=== PATIENT | female | born 1995 | race Caucasian/White ===

== ENCOUNTER 2017-01-27 16:44 | Inpatient (IN) ==
--- OUTSIDE RECORDS SUMMARY | 2017-01-27 16:54 | External Medical Summary | Continuity of Care Document ---
:1995 Author Organization [facility] Address [address] [place], [place] [id number] Phone Support Name Relationship Address Phone Zoltan Pulliam parent [id number] [phone] [place] [address] Allergies, Adverse Reactions, Alerts Substance Reaction Severity Status No Known Drug Allergies Unknown Active Medications Medication Instructions Dosage Effective Dates Status Comments (start - stop) + DHA - Active (unknown strength) 28 mg-800 - Active mcg tablet Aspir-81 81 mg take 1 tablet by oral 81 MG - Active tablet,delayed route every day release Problems Condition Effective Dates (start - stop) Clinical Status Morbid (severe) obesity due to excess calories 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) (routine) w/o abn findings Body mass index (BMI) 36.0-36.9, adult Unsp pre-existing htn comp , - second trimester Unsp pre-existing htn comp , - unsp trimester 19 weeks gestation of - Encntr for suprvsn of normal first - preg, second trimester Morbid (severe) obesity due to excess - calories Partial placenta previa NOS or w/out - hemorrhage, unspec trimester Obesity complicating , first - trimester 12 weeks gestation of - Encntr for suprvsn of normal first - preg, first trimester Morbid (severe) obesity due to excess calories Other fatigue 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) - (routine) w abnormal findings Pap Smear Screening, Cervix Pap Smear Screening, Cervix Body mass index (BMI) 37.0-37.9, adult Encounter for surveillance of contraceptive pills Unsp pre-existing htn comp , - second trimester Obesity complicating , second - trimester 19 weeks gestation of - Unsp pre-existing htn comp , - unsp trimester Partial placenta previa NOS or w/out - hemorrhage, second trimester Obesity complicating , second - trimester 16 weeks gestation of - Obesity complicating , first - trimester Encntr for suprvsn of normal first - preg, first trimester 8 weeks gestation of - Obesity complicating , first - trimester Encntr for suprvsn of normal first - preg, first trimester 12 weeks gestation of - Initiation of Oral Contraceptives - Active Irregular Bleeding Active Procedures Procedure Date Unknown Results Test Name Date and Time Measure Units Reference Range Abnormal Flag Comments Unknown Advance Directives Directive Yes / No Effective Date File Name Unknown Encounters Encounter Practice Location Reason(s) Diagnoses Date Provider Care Description For Visit Team Members Kimberly Calderón Aug-0 Ariela In Wom[facility] 3-201 Vani. [facility], 7 [address], [place], [place], [place] [id number], , [facility] [place] 120, tel:+ Stephane [address] [place] [address], [id number] , [place]. tel: [phone] [facility] pre-existing Aug-0 Ariela In Wom[facility] htn comp 2-201 [facility], , second 7 700 [address], [place], pre[place]existing htn Center [id number], comp , [facility] unsp [email or web address] 120, tel:+21 weeks gestation [place] [address] [place] [address], pregnancyEncntr [id number] for suprvsn of , [place]. normal first tel: preg, second [id number] trimester Associates [facility] Lr pre-existing Aug-0 Ariela In [facility] Ultrasound htn comp 2-201 [facility], , second 7 700 [address], trimesterObesity [place], complicating Center [id number], , second Nabor Duran [place] [id number] weeks 120, tel: gestation of [place], [address] [place], [id number] , [place]. tel: [phone] [facility] Unsp pre-existing Reagan-1 Ariela In Womens htn comp 0-201 [facility], , unsp 7 [address], [place], [place], placenta previa Center [id number], NOS or w/out , Nabor [place] hemorrhage, 120, tel:+ second [place], [address] trimesterObesity [place], complicating [id number] , second , [place]. [email or web address] weeks tel: gestation of [id number] [facility] Morbid (severe) Deven-1 Sobbing In Womens obesity due to 2-201 Wilfrido. [facility], excess 7 700 [address], [place], [place], placenta previa Center , NOS or w/out Drive, [place] hemorrhage, Suite tel: unspec 120, [address] trimesterObesity [place], complicating [place], , first [address], [email or web address] weeks [place]. gestation of tel: pregnancyEncntr [id number] for suprvsn of normal first preg, first trimester [facility] Obesity Deven-1 Ariela In Womens Ultrasound complicating 2-201 [facility], , first 7 [address], [place], [place], for suprvsn of Center [id number], normal first Nabor Duran [place] preg, first 120, tel: [email or web address] weeks [place], [address] gestation of [place], [id number] , [place]. tel: [phone] [facility] Obesity May-1 Ariela In Womens complicating 5-201 [facility], , first 7 [address], [place], for suprvsn of Center [id number], normal first Nabor Duran [place] preg, first 120, tel: trimester8 weeks [place], [address] gestation of [place], [id number] , [place]. tel: [phone] Kimberly Calderón Morbid (severe) Mar-2 Hossein In Womens obesity due to 7-201 Ladonna. [facility], excess 7 700 [address], [place], for bond underwriter exam Center [id number], (general) Nabor Duran (routine) w/o abn 120, tel:+21 findingsBody mass [place], [address] index (BMI) [place], 36.0-36.9, adult [id number] , [place]. tel: [phone] Kimberly Stephane Morbid (severe) Mar-1 Hossein In Womens obesity due to 4-201 [facility]onna. [facility], excess 6 700 [address], [place], [facility] [id number], bond underwriter exam Nabor Duran (general) 120, tel:+21 (routine) w Stephane, [address] abnormal [place], findingsPap Smear [id number] Screening, , [place]. CervixPap Smear tel: Screening, [phone] CervixBody mass index (BMI) 37.0-37.9, adultEncounter for surveillance of contraceptive pills Kimberly Stephane Dec-0 Hossein In Womens 3-201 [facility], 4 700 [address], [place], [place], [place] [id number], Nabor Duran 120, tel:+21 Stephane, [address] [place], [id number] , [place]. tel: [phone] Family History Family Member Diagnosis Age At Onset No family history of Pulmonary Embolism Maternal Grandfather Diabetes mellitus Maternal Grandmother Cardiovascular Disease No family history of Venous Thrombosis Immunizations Vaccine Date Status Comments Unknown Payers Payer name Insurance type Covered constitution party ID Authorization(s) R CI [id number] Social History Type Description Quantity Date Captured Unknown Vital Signs Date / Height Weight BMI Pulse Blood Temperature Respiratory Body Head BMI Time: Rate Pressure Rate Surface Circumference percentile Area Unknown Chief Complaint And Reason For Visit Unknown Chief Complaint And Reason For Visit Reason For Referral Reason For Referral Unknown Plan Of Care Date Type Action Status Goal Lifestyle education regarding completed diet Goal Lifestyle education regarding completed diet Appointment Alta Lechuga BOOKED Future Order: Lab Order Pap Smear With HPV Reflex If Ordered ASCUS ([id number]) Future Order: Radiology Order Complete OB Ultrasound > 14 Ordered Weeks ([id number]) Future Order: Radiology Order Nuchal Translucency ([id number]) Ordered Date Type Problem Goal Intervention Status Start Date Unknown. History Of Present Illness Encounter Date Complaint History Of Present Illness This patient has no known history of present illness Functional Status Encounter Date Functional Assessment Cognitive Assessment Unknown Medications Administered Medication Instructions Dosage Effective Dates (start - stop) Status Comments Drug Treatment Unknown Instructions Date Instruction Additional Information indications for ultrasound influenza vaccine environmental / work hazards travel tobacco (ask, advise, assess, assist and arrange) alcohol illicit / recreational drugs HIV and other routine tests risk factors identified by history anticipated course of care nutrition and weight gain counseling, special diet toxoplasmosis precautions (cats / raw meat) sexual activity exercise use of any medications (including supplements, vitamins, herbs, OTC drugs) smoking counseling domestic violence seat belt use childbirth classes / hospital facilities hospital registration genetic testing new ob handbook Zika virus assessment & precautions Giving encouragement to exercise Related to Body mass index 36.0-36.9 Lifestyle education regarding diet Related to Body mass index 36.0-36.9 Giving encouragement to exercise Related to Body mass index 37.0-37.9 Lifestyle education regarding diet Related to Body mass index 37.0-37.9
--- OUTSIDE RECORDS SUMMARY | 2017-01-27 16:54 | External Medical Summary | Continuity of Care Document ---
:1995 Author Organization [facility] Address [address] [place], [place] [id number] Phone Support Name Relationship Address Phone Zoltan Pulliam parent [address] [phone] [place] [address] Allergies, Adverse Reactions, Alerts Substance Reaction Severity Status No Known Drug Allergies Unknown Active Medications Medication Instructions Dosage Effective Dates Status Comments (start - stop) + DHA - Active (unknown strength) Aspir-81 81 mg take 1 tablet by oral 81 MG - Active tablet,delayed route every day release Pepcid 20 mg tablet take 1 tablet by oral 20 MG - Active route every day Problems Condition Effective Dates (start - stop) Clinical Status Supervision of other high risk - pregnancies, third trimester Partial Placenta Previa Nos Or W/out - Hemorrhage, Third Trimester Obesity complicating , third - trimester 30 weeks gestation of - Unsp pre-existing htn comp , - second trimester Unsp pre-existing htn comp , - unsp trimester Encntr for suprvsn of normal first - preg, second trimester 19 weeks gestation of - Supervision of other high risk - pregnancies, third trimester Unsp pre-existing htn comp , - third trimester Obesity complicating , third - trimester 28 weeks gestation of - Morbid (severe) obesity due to excess calories 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) w/o 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 findings Body mass index (BMI) 36.0-36.9, adult Morbid (severe) obesity due to excess - calories Partial placenta previa NOS or w/out - hemorrhage, unspec trimester Obesity complicating , first - trimester Encntr for suprvsn of normal first - preg, first trimester 12 weeks gestation of - Morbid (severe) obesity due to excess calories Other fatigue 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) - (routine) w abnormal findings Pap Smear Screening, Cervix Pap Smear Screening, Cervix Encounter for surveillance of contraceptive pills Body mass index (BMI) 37.0-37.9, adult Supervision of other high risk - pregnancies, second trimester Unsp pre-existing htn comp , - second trimester Obesity complicating , second - trimester 23 weeks gestation of - Supervision of other high risk - pregnancies, third trimester Unsp pre-existing htn comp , - third trimester Obesity complicating , third - trimester 30 weeks gestation of - Supervision of other high risk - pregnancies, third trimester Unsp pre-existing htn comp , - third trimester Obesity complicating , third - trimester 32 weeks gestation of - Unsp pre-existing htn comp , - second trimester Obesity complicating , second - trimester Encntr for suprvsn of normal first - preg, second trimester 26 weeks gestation of - Unsp pre-existing htn comp , - second [...] Active Irregular Bleeding Active Procedures Procedure Date OB Visit No Charge Results Test Name Date and Time Measure Units Reference Range Abnormal Flag Comments Unknown Advance Directives Directive Yes / No Effective Date File Name Unknown Encounters Encounter Practice Location Reason(s) Diagnoses Date Provider Care Team Description For Visit Members Kimberly Calderón Supervision of Nov-0 Ariela In Wom[facility] other high risk 1-201 [facility], pregnancies, 7 700 [address], [facility], pre-existing htn Nabor Duran, comp , 120, , third [facility] trimesterObesity [place], tel:[phone] complicating [id number] , third , [place]. [email or web address] weeks tel:+-31 gestation of [id number] Associates [facility] Supervision of Oct-1 Ariela In Womens other high risk 8-201 [facility], pregnancies, 7 700 [address], [facility], Placenta Previa Nabor Duran, Nos Or W/out 120, , Hemorrhage, Third [facility] TrimesterObesity [place], tel:[phone] complicating [id number] , third , [place]. weeks tel:+1-31 gestation of [id number] Associates Ste[facility]ane Supervision of Oct-1 Ariela In Womens Ultrasound other high risk 8-201 [facility], pregnancies, 7 700 [address], [facility], pre-existing htn Nabor Duran, comp , 120, , third [facility] trimesterObesity [place], tel:[phone] complicating [id number] , third , [place]. [email or web address] weeks tel:+1-31 gestation of [id number] Associates [facility] Supervision of Oct-0 Ariela Referring In Womens other high risk 4-201 Vani. Provider: Health [facility], pregnancies, 7 700 Vani [address] Medical Ariela L, 1522, trimesterUnsp Center [address] [place], pre-existing htn Nabor Duran, comp , 120, [address] Dr , third Nabor Calderón 120, [place] trimesterObesity [facility], Stephane, tel:[phone] complicating [id number] [place], , third , [place]. [id number]. [email or web address] weeks tel:+1-31 tel:+1-316 gestation of [id number] [facility] pre-existing Sep-2 Ariela In Womens htn comp 0-201 [facility], , second 7 700 PO Box trimesterObesity Medical 1522, complicating Center [place], , second Nabor Duran, trimesterEncntr 120, , for suprvsn of Calder[place], normal first [place], tel:[phone] preg, second [id number] weeks , [place]. gestation of tel:[phone] Associates Stephane Supervision of 3 Ariela In Womens other high risk 0-201 [facility], pregnancies, 7 700 [address] second [address], trimesterUnsp Center [place], pre-existing htn Nabor Duran, comp , 120, , second [place], [place] trimesterObesity [place], tel:[phone] complicating [id number] , second , [place]. [email or web address] weeks tel:+1-31 gestation of [phone] [facility] L[facility] pre-existing Aug-0 Ariela In Womens htn comp 2-201 [facility], , second 7 700 PO Box trimesterUnsp Medical 1522, pre-existing htn Center [place], comp , Nabor Duran, unsp 120, , trimesterEncntr [place], for suprvsn of [place], tel:[phone] normal first [id number] preg, second , [place]. [email or web address] weeks tel:+1-31 gestation of [id number] [facility] Lr pre-existing Aug-0 Ariela In Womens Ultrasound htn comp 2-201 [facility], , second 7 700 PO Box trimesterObesity Medical 1522, complicating Center [place], , second Nabor Duran, [email or web address] weeks 120, [id number], gestation of [place], [place], tel: , [place]. tel: [phone] Associates Stephane Unsp pre-existing Reagan-1 Ariela In Womens htn comp 0-201 [facility], , unsp 7 700 PO Box trimesterPartial Medical 1522, placenta previa Center [place], NOS or w/out Nabor Duran, hemorrhage, 120, [id number], second [facility] trimesterObesity [place], tel: complicating , second , [place]. [email or web address] weeks tel: gestation of Associates Ste[facility] Morbid (severe) Deven-1 Sobbing In Womens obesity due to 2-201 Wilfrido. [facility], excess 7 700 PO Box caloriesPartial Medical 1522, placenta previa Center [place], NOS or w/out Drive, [place], hemorrhage, [address] [id number], unspec 120, [place] trimesterObesity [place], tel: complicating [place], , first [address], trimesterEncntr [place]. for suprvsn of tel: normal first [id number] preg, first [id number] weeks gestation of Associates Ste[facility] Obesity Deven-1 Ariela In Womens Ultrasound complicating 2-201 [facility], , first 7 700 PO Box trimesterEncntr Medical 1522, for suprvsn of [facility], normal first Nabro Duran, preg, first 120, [id number], [email or web address] weeks [place], gestation of [place], tel: , [place]. tel: [phone] [facility] Obesity May-1 Ariela In Womens complicating 5-201 [facility], , first 7 700 PO Box trimesterEncntr Medical 1522, for suprvsn of [facility], normal first Nabor Duran, preg, first 120, [id number], trimester8 weeks [place], gestation of [place], tel: , [place]. tel: [phone] Kimberly Calderón Morbid (severe) Mar-2 Hossein In Womens obesity due to 7-201 [facility]. 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 tel: [phone] Kimberly Calderón Morbid (severe) Mar-1 Hossein In Womens obesity due to 4-201 [facility]. [facility], excess 6 700 PO Box caloriesOther Medical 1522, fatigueEncntr for [facility], hand expansion envelope maker exam Nabor Duran, (general) 120, , (routine) w [place], [place] abnormal [place], tel: findingsPap Smear [id number] [id number] Screening, , [place]. CervixPap Smear tel: Screening, [phone] CervixEncounter for surveillance of contraceptive pillsBody mass index (BMI) 37.0-37.9, adult Associates Stephane Dec-0 Hossein In Womens 3-201 [facility]. [facility], 4 700 [address], [place], Nabor Duran, 120, , [place], [place], tel: [phone] [phone] , [place]. tel: [phone] Family History Family Member Diagnosis Age At Onset No family history of Pulmonary Embolism Maternal Grandfather Diabetes mellitus Maternal Grandmother Cardiovascular Disease No family history of Venous Thrombosis Immunizations Vaccine Date Status Comments Influenza, injectable, completed Source: New Immunization Record quadrivalent, preservative free, 3 yrs or older Payers Payer name Insurance type Covered green party ID Authorization(s) R CI [id number] R CI [id number] Social History Type Description Quantity Date Captured Alcohol Use Details No Caffeine Use Details Unknown Tobacco Use Status Unknown Smoking Status Never smoker Vital Signs Date / Height Weight BMI Pulse Blood Temperature Respiratory Body Head BMI Time: Rate Pressure Rate Surface Circumference percentile Area 271.80 41.3 136/86 2017 lbs 2 mm[Hg] 9:06 kg/m AM eter (2) Chief Complaint And Reason For Visit Unknown Chief Complaint And Reason For Visit Reason For Referral Reason For Referral Unknown Plan Of Care Date Type Action Status Goal Lifestyle education regarding completed diet Goal Lifestyle education regarding completed diet Appointment Alta Lechuga BOOKED Appointment Alta Lechuga BOOKED Appointment Atla Lechuga BOOKED Appointment Alta Lechuga BOOKED Appointment Alta Lechuga BOOKED Future Order: Lab Order Pap Smear With HPV Reflex If Ordered ASCUS ([id number]) Future Order: Radiology Order Ultrasound OB Follow-up ([id number]) Ordered Future Order: Radiology Order Complete OB Ultrasound > 14 Ordered Weeks ([id number]) Future Order: Radiology Order Nuchal Translucency ([id number]) Ordered Date Type Problem Goal Intervention Status [...]
--- OUTSIDE RECORDS SUMMARY | 2017-01-27 16:54 | External Medical Summary | Continuity of Care Document ---
:1995 Author Organization [facility] [employer] [facility] Address [address] [place], [place] [id number] Phone Support Name Relationship Address Phone Zoltan Pulliam parent [address] [phone] [place] [address] Allergies, Adverse Reactions, Alerts Substance Reaction Severity Status No Known Drug Allergies Unknown Active Medications Medication Instructions Dosage Effective Dates Status Comments (start - stop) + DHA - Active (unknown strength) 28 mg-800 - Active mcg tablet Aspir-81 81 mg take 1 tablet by oral 81 MG - Active tablet,delayed route every day release Tylenol 325 mg tablet take 3 tablet by ORAL 975 MG - Active route every 4 days as needed Aspercreme - Active (lidocaine) 4 % topical Problems Condition Effective Dates (start - stop) Clinical Status Morbid (severe) obesity due to excess calories 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) w/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 findings Body mass index (BMI) 36.0-36.9, adult Unsp pre-existing htn comp , - second trimester Unsp pre-existing htn comp , - unsp trimester 19 weeks gestation of - Encntr for suprvsn of normal first - preg, second trimester Supervision of other high risk - pregnancies, second trimester Unsp pre-existing htn comp , - second trimester 23 weeks gestation of - Obesity complicating , second - trimester Morbid (severe) obesity due to excess - calories Partial placenta previa NOS or w/out - hemorrhage, unspec trimester Obesity complicating , first - trimester 12 weeks gestation of - Encntr for suprvsn of normal first - preg, first trimester Morbid (severe) obesity due to excess calories Other fatigue 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) - (routine) w abnormal findings Pap Smear Screening, Cervix Pap Smear Screening, Cervix Encounter for surveillance of contraceptive pills Body mass index (BMI) 37.0-37.9, adult Obesity complicating , first - trimester Encntr for suprvsn of normal first - preg, first trimester 8 weeks gestation of - Obesity complicating , first - trimester Encntr for suprvsn of normal first - preg, first trimester 12 weeks gestation of - Partial placenta previa NOS or w/out - hemorrhage, second trimester Unsp pre-existing htn comp , - unsp trimester Obesity complicating , second - trimester 16 weeks gestation of - Unsp pre-existing htn comp , - second trimester Obesity complicating , second - trimester 19 weeks gestation of - Initiation of Oral Contraceptives - Active Irregular Bleeding Active Procedures Procedure Date Unknown Results Test Name Date and Time Measure Units Reference Range Abnormal Flag Comments Unknown Advance Directives Directive Yes / No Effective Date File Name Unknown Encounters Encounter Practice Location Reason(s) Diagnoses Date Provider Care Description For Visit Team Members Kimberly Calderón Supervision of [facility] other high risk 0-201 [facility], pregnancies, 7 [address], [place], [place], trimesterUns Center [id number], pre-existing htn Nabor Duran comp , 120, tel:+21 second Calderón, [address] weeks [place], gestation [place] [id number] pregnancyObesity , [place]. complicating tel:+[phone] , second [id number] trimester Kimberly Calderón [facility] 4-201 [facility], 7 [address], [place], [place], Center [id number], Nabor Duran 120, tel: Stephane, [address] [place], [id number] , [place]. tel: [phone] [facility] Unsp pre-existing Aug-0 [facility] htn comp 2-201 [facility], , second 7 700 [address], [place], pre-existing htn Center , comp , Nabor Duran unsp [email or web address] 120, tel: weeks gestation Calderón, [address] of [place], pregnancyEncntr [id number] for suprvsn of , [place]. normal first tel: preg, second [id number] trimester [facility] Unssakina pre-existing Aug-0 [facility] Ultrasound htn comp 2-201 [facility], , second 7 700 [address], [place], complicating Center [id number], , second Nabor Duran [email or web address] weeks 120, tel: gestation of [facility] [address] [place], [id number] , [place]. tel: [phone] [facility] Partial placenta Reagan-1 [facility] previa NOS or 0-201 [facility], w/out hemorrhage, 7 [address], [place], [place], trimesterUnsp Center [id number], pre-existing htn Nabor Duran comp , 120, tel: unsp [place] [address] [facility], complicating [id number] , second , [place]. [email or web address] weeks tel: gestation of [id number] [facility] Morbid (severe) Deven-1 Sobbing In [facility] obesity due to 2-201 [facility], excess 7 700 [address], [place], placenta previa Center , NOS or w/out Drive, [place] hemorrhage, Suite tel: unspec 120, [address] trimesterObesity Calderón, complicating [place], , first [address], [email or web address] weeks [place]. gestation of tel: pregnancyEncntr [id number] for suprvsn of normal first preg, first trimester [facility] Obesity Deven-1 [facility] Ultrasound complicating 2-201 [facility], , first 7 [address], [place], for suprvsn of Center [id number], normal first Nabor Duran preg, first 120, tel:+21 [email or web address] weeks Calderón, [address] gestation of [place], [id number] , [place]. tel: [phone] [facility] Obesity May-1 [facility] complicating 5-201 [facility], , first 7 [address], [place], [place], for suprvsn of [place] [id number], normal first Nabor Duran preg, first 120, tel:+21 trimester8 weeks Calderón, [address] gestation of [place], [id number] , [place]. tel: [phone] [facility] Morbid (severe) Mar-2 [facility] obesity due to 7-201 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 tel: [phone] [facility] Morbid (severe) Mar-1 [facility]sein [facility] obesity due to 4-201 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 CervixPap Smear tel: Screening, [phone] CervixEncounter for surveillance of contraceptive pillsBody mass index (BMI) 37.0-37.9, adult [facility] Dec-0 [facility] 3-201 [facility], 4 700 [address], [facility] [place], Center [id number], Nabor Duran [place] 120, tel:[phone] Stephane, [address] [place], [id number] , . tel: [phone] Family History Family Member Diagnosis Age At Onset No family history of Pulmonary Embolism Maternal Grandfather Diabetes mellitus Maternal Grandmother Cardiovascular Disease No family history of Venous Thrombosis Immunizations Vaccine Date Status Comments Unknown Payers Payer name Insurance type Covered republican ID Authorization(s) [facility] CI [id number] Social History Type Description Quantity Date Captured [...] Ordered ASCUS (WPMPap1) Future Order: Radiology Order Nuchal Translucency ([id number]) Ordered Future Order: Radiology Order Complete OB Ultrasound > 14 Ordered Weeks ([id number]) Date Type Problem Goal Intervention Status Start [...]
--- OUTSIDE RECORDS SUMMARY | 2017-01-27 16:55 | External Medical Summary | Continuity of Care Document ---
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 complicating tel:+31 , second [id number] trimester Kimberly Calderón [facility] 5-201 [facility], 7 [address], [place], [place], Center [id number], Nabor Duran 120, tel: Stephane, [address] [place], [id number] , [place]. tel: [phone] [facility] Unsp pre-existing Aug-0 [facility] htn comp 2-201 [facility], , second 7 [address], [place], pre-existing htn Center , comp , Nabor Duran unsp [email or web address] 120, tel: weeks gestation Calderón, [address] of [place], pregnancyEncntr [id number] for suprvsn of , [place]. normal first tel: preg, second [id number] trimester [facility] Unssakina pre-existing Aug-0 [facility] Ultrasound htn comp 2-201 [facility], , second 7 700 [address], [place], complicating Center [id number], , second Nabor Duran [email or web address] weeks 120, tel: gestation of [facility] [address] [place], [id number] , [place]. tel: [phone] [facility] Partial placenta Reagan-1 [facility] previa NOS or 0-201 [facility], w/out hemorrhage, 7 [address], [place], [place], trimesterUnsp Center [id number], pre-existing htn Nabor Duran comp , 120, tel: unsp [place] [address] [facility], complicating [id number] , second , [place]. [email or web address] weeks tel: gestation of [phone] [facility] Morbid (severe) Deven-1 Sob[place] In [facility]omens obesity due to 2-201 [facility], excess 7 700 [address], [place], placenta previa Center , NOS or w/out Drive, [place] hemorrhage, Suite tel: unspec 120, [address] trimesterObesity Calderón, complicating [place], , first [address], [email or web address] weeks [place]. gestation of tel: pregnancyEncntr [id number] for suprvsn of normal first preg, first trimester [facility] Obesity Deven-1 [facility] Ultrasound complicating 2-201 [facility], , first 7 [address], [place], [place], for suprvsn of Center [id number], normal first Nabor Duran preg, first 120, tel:+21 [id number] weeks Calderón, [address] gestation of [place], [id number] , [place]. tel: [phone] [facility] Obesity May-1 [facility] complicating 5-201 [facility], , first 7 [address], [place], [place], for suprvsn of [place] [id number], normal first Nabor Duran preg, first 120, tel:+21 trimester8 weeks Calderón, [address] gestation of [place], [id number] , [place]. tel: [phone] [facility] Morbid (severe) Mar-2 Hossein In Womens obesity due to 7-201 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 tel: [phone] [facility] Morbid (severe) Mar-1 Hossein In Womens obesity due to 4-201 [facility], excess 6 700 [address], [place], [place], [facility] , harvest contractor exam Nabor Duran (general) 120, tel:+21 (routine) w Calderón, [address] abnormal [place], findingsPap Smear [id number] Screening, , [place]. CervixPap Smear tel: Screening, [phone] CervixEncounter for surveillance of contraceptive pillsBody mass index (BMI) 37.0-37.9, adult [facility] Dec-0 Hossein In Womens 3-201 [facility], 4 700 [address], [facility] [place], Center [id number], Nabor Duran [place] 120, tel:[phone] Stephane, [address] [place], [id number] , . tel: [phone] Family History Family Member Diagnosis Age At Onset No family history of Pulmonary Embolism Maternal Grandfather Diabetes mellitus Maternal Grandmother Cardiovascular Disease No family history of Venous Thrombosis Immunizations Vaccine Date Status Comments Unknown Payers Payer name Insurance type Covered green party ID Authorization(s) [facility] CI [id number] Social History Type Description Quantity Date Captured [...] (WPMPap1) Future Order: Radiology Order Nuchal Translucency ([id number]) Ordered Future Order: Radiology Order Complete OB Ultrasound > 14 Ordered Weeks ([id number]) Date Type Problem Goal Intervention Status Start [...]
--- OUTSIDE RECORDS SUMMARY | 2017-01-27 16:55 | External Medical Summary | Continuity of Care Document ---
:1995 Author Organization [facility] Address [address] [place], [place] [id number] Phone Support Name Relationship Address Phone Zoltan Pulliam parent [phone] [phone] [place] [address] Allergies, Adverse Reactions, Alerts Substance Reaction Severity [...] 20 MG - Active route every day omeprazole 20 mg take 1 capsule by oral - Active capsule,delayed route every day release before a meal Problems Condition Effective Dates (start - stop) Clinical Status Unsp pre-existing htn comp , - second trimester Unsp pre-existing htn comp , - unsp trimester Encntr for suprvsn of normal first - preg, second trimester 19 weeks gestation of - Supervision of other high risk - pregnancies, third trimester Unsp pre-existing htn comp , - third trimester Obesity complicating , third - trimester 28 weeks gestation of - Supervision of other high risk - pregnancies, third trimester Unsp pre-existing htn comp , - third trimester Polyhydramnios, third trimester, not - applicable or unsp 35 weeks gestation of - Morbid (severe) obesity due to excess - calories Supervision of other high risk - pregnancies, third trimester Pre-existing hypertension w - pre-eclampsia, third trimester Polyhydramnios, third trimester, not - applicable or unsp Morbid (severe) obesity due to excess calories 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 Body mass index (BMI) 36.0-36.9, adult Morbid (severe) obesity due to excess - calories Partial placenta previa NOS or w/out - hemorrhage, unspec trimester Obesity complicating , first - trimester Encntr for suprvsn of normal first - preg, first trimester 12 weeks gestation of - Morbid (severe) obesity due to excess calories Other fatigue 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) - (routine) w abnormal findings [...] other high risk - pregnancies, third trimester Polyhydramnios, third trimester, not - applicable or unsp Obesity complicating , third - trimester 34 weeks gestation of - Supervision of other high risk - pregnancies, third trimester Unsp pre-existing htn comp , - third trimester Obesity complicating , third - trimester 32 weeks gestation of - Supervision of other [...] - Unsp pre-existing htn comp , - third trimester Polyhydramnios, third trimester, not - applicable or unsp Obesity complicating , third - trimester 35 weeks gestation of - Unsp pre-existing htn comp , - third trimester Polyhydramnios, third trimester, not - applicable or unsp Obesity complicating , third - trimester 36 weeks gestation of - Unsp pre-existing htn comp , - third trimester Polyhydramnios, third trimester, not - applicable or unsp Obesity complicating , third - trimester 34 weeks gestation of - Unsp pre-existing htn [...] Team Description For Visit Members Kimberly [place] Morbid (severe) Nov-2 [facility] obesity due to 9-201 [facility], excess 7 700 [address] caloriesSupervisi Medical 1522, on of other high [facility] [place], risk pregnancies, Nabor Duran, third 120, [id number], trimesterPre-exis [place], [place] ting hypertension [place], tel:[phone] w pre-eclampsia, [id number] third , [place]. trimesterPolyhydr tel:+03-27 amnios, third [id number] trimester, not applicable or unsp [facility] pre-existing Nov-2 [facility] Ultrasound htn comp 9-201 [facility], , third 7 700 PO Box trimesterPolyhydr Medical 1522, amnios, third [facility] [place], trimester, not Nabor Duran, applicable or 120, [id number], unspObesity [place], [place] complicating [place], tel:[phone] , third [phone] [email or web address] weeks , [place]. gestation of tel:+03-27 [phone] Kimberly [place]ón Supervision of Nov-2 [facility] other high risk 0-201 [facility], pregnancies, 7 700 [address] third Medical 1522, trimesterUnsp [facility] [place], pre-existing htn Nabor Duran, comp , 120, [id number], third [place], [place] trimesterPolyhydr [place], tel:[phone] amnios, third [phone] [id number] trimester, not , [place]. applicable or tel:+03-27 unsp35 weeks [id number] gestation of [facility]p pre-existing Nov-2 [facility] Ultrasound htn comp 0-201 [facility], , third 7 700 PO Box trimesterPolyhydr Medical 1522, amnios, third [facility], trimester, not Nabor uDran, applicable or 120, [id number], unspObesity [place], [place] complicating [place], tel:[phone] , third [phone] [email or web address] weeks , [place]. gestation of tel:+03-27 [phone] Kimberly [place]ón Supervision of Nov-1 [facility] other high risk 5-201 [facility], pregnancies, 7 700 [address] third Medical 1522, trimesterPolyhydr [facility] [place], amnios, third Nabor Duran, trimester, not 120, [id number], applicable or [place], [place] unspObesity [place], tel:[phone] complicating [id number] , third , [place]. [email or web address] weeks tel: gestation of [phone] [facility] Unsp pre-existing Nov-1 [facility] Ultrasound htn comp 5-201 [facility], , third 7 700 PO Box trimesterPolyhydr Medical 1522, amnios, third [facility] [place], trimester, not Nabor Duran, applicable or 120, , unspObesity [place], [place] complicating [place], tel:+ , third [phone] [id number] [email or web address] weeks , [place]. gestation of tel: [phone] [facility] Nov-0 [facility] 9-201 [facility], 7 700 [address] Medical 1522, [facility], Nabor Duran, 120, [id number], [place], [place], tel:+ [phone] , [place]. tel: [phone] [facility] Supervision of Nov-0 [facility] other high risk 1-201 [facility], pregnancies, 7 700 [address] Box third Medical 1522, trimesterUnsp [facility], pre-existing htn Nabor Duran, comp , 120, , third [place], [place] trimesterObesity [place], tel:[phone] complicating [id number] , third , [place]. [email or web address] weeks tel:+03-27 gestation of [phone] [facility] Supervision of Oct-1 [facility] other high risk 8-201 [facility], pregnancies, 7 700 [address] Box third Medical 1522, trimesterPartial [facility] [place], Placenta Previa Nabor Duran, Nos Or W/out 120, [id number], Hemorrhage, Third [place], [place] TrimesterObesity [place], tel:[phone] complicating [phone] [id number] , third , [place]. [email or web address] weeks tel:+1-31 gestation of [id number] [facility] Supervision of Oct-1 [facility] Ultrasound other high risk 8-201 [facility], pregnancies, 7 700 PO Box third Medical 1522, trimesterUnsp [facility] [place], pre-existing htn Nabor Duran, comp , 120, [id number], third [place], trimesterObesity [place], tel:[phone] complicating [phone] [id number] , third , [place]. [email or web address] weeks tel:+1-31 gestation of [phone] [facility] Supervision of Oct-0 Ariela Referring In Womens other high risk 4-201 [facility]. Provider: [facility], pregnancies, 7 700 Vani [address] Box third Medical Ariela L, 1522, trimesterUnsp Center [address] [place], pre-existing htn Nabor Duran, comp , 120, [address] , third Stephane [place] [id number], [place] trimesterObesity Stephane NIELSEN, tel:[phone] complicating [id number] [place], , third , [place]. [id number]. weeks tel:+131 tel:+1-316 gestation of [phone] [facility] Uns pre-existing Sep-2 [facility] htn comp 0-201 [facility], , second 7 700 PO Box trimesterObesity Medical 1522, complicating [facility] [place], , second Nabor Duran, trimesterEncntr 120, [id number], for suprvsn of [place], normal first [place], tel:[phone] preg, second [id number] [email or web address] weeks , [place]. gestation of tel:[phone] [phone] [facility] Supervision of Aug-3 [facility] other high risk 0-201 [facility], pregnancies, 7 700 PO Box second Medical 1522, trimesterUnsp [facility] [place], pre-existing htn Nabor Duran, comp , 120, [id number], second [place], trimesterObesity [place], tel:[phone] complicating [id number] , second , [place]. [email or web address] weeks tel:+1-31 gestation of [id number] [facility] Unsp pre-existing Aug-0 [facility] htn comp 2-201 [facility], , second 7 700 PO Box trimesterUnsp Medical 1522, pre-existing htn [facility] [place], comp , Nabor Duran, unsp 120, [id number], trimesterEncntr [place], for suprvsn of [place], tel:[phone] normal first [id number] preg, second , [place]. [email or web address] weeks tel:+03-27 gestation of [id number] [facility] Unsp pre-existing Aug-0 [facility] Ultrasound htn comp 2-201 [facility], , second 7 700 PO Box trimesterObesity Medical 1522, complicating [facility] [place], , second DrNabor, [email or web address] weeks 120, [id number], gestation of [place], [place], tel:[phone] , [place]. tel:[phone] [facility] Unsp pre-existing Reagan-1 Ariela In [facility] htn comp 0-201 [facility], , unsp 7 700 PO Box trimesterPartial Medical 1522, placenta previa [facility] [place], NOS or w/out Nabor Duran, hemorrhage, 120, , second [place], [place] trimesterObesity [place], tel:[phone] complicating [phone] , second , [place]. [email or web address] weeks tel: gestation of [phone] [facility] Morbid (severe) Deven-1 Sobbing In [facility] obesity due to -201 [facility], excess 7 700 PO Box caloriesPartial Medical 1522, placenta previa [facility] [place], NOS or w/out Drive, [place], hemorrhage, [address] [id number], unspec 120, [place] trimesterObesity [place], tel:[phone] complicating [place], , first [id number], trimesterEncntr [place]. for suprvsn of tel:+03-27 normal first [id number] preg, first [email or web address] weeks gestation of [facility] Obesity Deven-1 [facility] Ultrasound complicating 2-201 [facility], , first 7 700 PO Box trimesterEncntr Medical 1522, for suprvsn of [facility], normal first Nabor Duran, preg, first 120, , [email or web address] weeks [place], [place] gestation of [place], tel: , [place]. tel: [phone] [facility] Obesity May-1 [facility]ela In [facility] complicating 5-201 [facility], , first 7 700 PO Box trimesterEncntr Medical 1522, for suprvsn of [facility], normal first Nabor Duran, preg, first 120, , trimester8 weeks [place], gestation of [place], tel: , [place]. tel: [phone] [facility] Morbid (severe) Mar-2 Hossein In [facility] obesity due to 7-201 [facility], excess 7 700 PO Box caloriesEncntr Medical 1522, for trading analyst exam [facility], (general) Nabor Duran, (routine) w/o abn 120, , findingsBody mass [place], index (BMI) [place], tel: 36.0-36.9, adult [id number] 1967[address] , [place]. tel: [phone] [facility] Morbid (severe) Mar-1 Hossein In Wom[facility] obesity due to 4-201 [facility], excess 6 700 [facility], fatigueEncntr for [facility], trading analyst exam Nabor Duran, (general) 120, , (routine) w [place], [place] abnormal [place], tel: findingsPap Smear [phone] [id number] Screening, , [place]. CervixPap Smear tel: Screening, [phone] CervixEncounter for surveillance of contraceptive pillsBody mass index (BMI) 37.0-37.9, adult [facility] Dec-0 Hossein In Womens 3-201 [facility], 4 700 PO Box Medical 1522, [facility], Nabor Duran, 120, , [place], [place], tel:[phone] , [place]. tel: [phone] Family History Family Member Diagnosis Age At Onset No family history of Pulmonary Embolism Maternal Grandfather Diabetes mellitus Maternal Grandmother Cardiovascular Disease No family history of Venous Thrombosis Immunizations Vaccine Date Status Comments Influenza, injectable, completed Source: New Immunization Record quadrivalent, preservative free, 3 yrs or older Payers Payer name Insurance type Covered libertarian ID Authorization(s) [facility] [id number] [facility] CI [id number] Social History Type Description Quantity Date Captured [...] Future Order: Radiology Order Ultrasound OB Follow-up ([id number]) Ordered Future Order: Radiology Order Complete OB Ultrasound > 14 Ordered Weeks ([id number]) Future Order: Radiology Order Biophysical Profile without NST Ordered ([id number]) Future Order: Radiology Order Biophysical Profile without NST Ordered ([id number]) Future Order: Radiology Order Biophysical Profile without NST Ordered ([id number]) Future Order: Radiology Order Ultrasound OB Follow-up ([id number]) Ordered Future Order: Radiology Order Nuchal Translucency ([id number]) Ordered Date Type Problem Goal Intervention Status [...]
[2017-01-27] MEDS ORDERED: MAG-AL + SIM ORAL LIQUID 30ml PO PRN (17:06)
[2017-01-27] MEDS ORDERED: CARBOPROST 250 MCG/ML INJECTION IM PRN (17:06)
[2017-01-27] MEDS ORDERED: CALCIUM CARBONATE Chewable 500mg TABLET PO PRN (17:06)
[2017-01-27] MEDS ORDERED: LIDOCAINE 1% (10mg/ml) 2mL INJ PF SDV ID PRN (17:06)
[2017-01-27] MEDS ORDERED: METHYLERGONOVINE 0.2 MG/ML INJECTION IM PRN (17:06)
[2017-01-27] MEDS ORDERED: ACETAMINOPHEN 500 MG TABLET PO PRN (17:06)
[2017-01-27] MEDS ORDERED: DINOPROSTONE 10 MG VAGINAL INSERT VG ONE (17:08)
[2017-01-27 17:11] VITALS: BMI 40.0
--- NOTE | 2017-01-27 18:31 | OB/GYN Progress Note ---
- Pain Control Pain control: Tolerating well - Pelvic Exam Dilation (cm): 1 Effacement (%): 60 station: -4 Amniotic membrane status: Intact - Contractions Monitor mode: External Contraction pattern: Irregular Contraction intensity: Mild - Status status: Category l - Assessment and Plan Assessment: induction ongoing Plan: continuous present management (FB placed tolerated by pt and fetus)
[2017-01-27] MEDS ORDERED: ZOLPIDEM 5 MG TABLET PO PRN (19:43)
[2017-01-27 23:59] VITALS: RESP 16
[2017-01-28] MEDS: LR 1,000 ML IV PRN ×2 (04:21→14:47)
[2017-01-28] MEDS: D5LR 1,000 ML IV PRN ×2 (04:21→14:48)
[2017-01-28] MEDS ORDERED: OXYTOCIN DRIP 30 UNIT/500 ML ML IV PRN (05:00)
[2017-01-28] MEDS ORDERED: ONDANSETRON 4 MG/2 ML INJECTION IVP PRN ×2 (08:22→18:01)
--- NOTE | 2017-01-28 12:32 | Anesthesia Preoperative Report ---
Anesthesia Epidural/Spinal Rec - Date and Time Date: 01/28/17 Preoperative Diagnosis: Term induction Procedure: Labor Epidural Plan: Epidural - Vital Signs Vital Signs: Temperature 97.7 F 01/28/17 11:17 Pulse Rate 89 01/28/17 11:17 Respiratory Rate 16 01/28/17 11:17 Blood Pressure 129/60 01/28/17 11:17 Pulse Oximetry 100 01/28/17 11:17 /Para: P:0 - Medictaions & Allergies Inpatient Medications: Current Medications Acetaminophen (Tylenol) 500 - 1,000 mg PO Q4H PRN PRN Reason: Pain Last Admin: 01/27/17 23:52 Dose: 1,000 mg Al Hydroxide/Mg Hydroxide (Maalox Plus) 30 ml PO Q3H PRN PRN Reason: Indigestion Calcium Carbonate (Tums) 500 - 1,000 mg PO Q2H PRN PRN Reason: Indigestion Carboprost Tromethamine (Hemabate) 250 mcg IM O PRN PRN Reason: .Downtime Lactated Ringer's (Lactated Ringers) 1,000 mls @ 999 mls/hr IV .Q1H1M PRN Last Admin: 01/28/17 04:21 Dose: 999 mls/hr Dextrose/Lactated Ringer's (Dextrose 5%-Lactated Ringers) 1,000 mls @ 125 mls/ hr IV .Q8H PRN PRN Reason: Labor Last Admin: 01/28/17 04:21 Dose: 125 mls/hr Oxytocin (Pitocin Drip) 30 unit in 500 mls @ 2 mls/hr IV .Q24H PRN; Protocol PRN Reason: Induction/Augmentation Last Admin: 01/28/17 04:20 Dose: 2 mls/hr Lidocaine HCl (Xylocaine-Mpf 1% Vial) 0.2 mg ID O PRN PRN Reason: IV Start Methylergonovine Maleate (Methergine) 0.2 mg IM O PRN Misoprostol (Cytotec) 800 mcg MT ONCE PRN Ondansetron HCl (Zofran) 4 mg IVP Q4H PRN PRN Reason: Nausea &/or vomiting Last Admin: 01/28/17 08:30 Dose: 4 mg Zolpidem Tartrate (Ambien) 5 mg PO HS PRN PRN Reason: Insomnia Last Admin: 01/27/17 21:30 Dose: 5 mg Allergies/Adverse Reactions: Allergies Allergy/AdvReac Type Severity Reaction Status Date / Time No Known Allergies Allergy Verified 01/27/17 19:40 - Medical History Respiratory: DENIES: Asthma, Bronchitis, Chronic Obstructive Pulmonary Disease (COPD), Dyspnea, Orthopnea, Pulmonary Embolism, Pneumonia, Upper Respiratory Infection, Pulmonary Edema, Sleep Apnea, Tuberculosis, Other Cardiovascular: Reports: Hypertension (PIH) DENIES: Abnormal EKG, Angina, Arrhythmia, Congestive Heart Failure, Coronary Artery Disease, Heart Murmur, Hypotension, High Cholesterol, Myocardial Infarction, Rheumatic Fever, Valvular Heart Disease, Other Gastrointestional: Reports: Morbid Obesity DENIES: Obstructive Bowel, Hepatitis, Cirrhosis, Nausea or Vomiting Present, Gastroesophageal Reflux Disease, Gastrointestinal Bleeding, Hiatal Hernia, Ulcer , Other Neuro/Musculoskeletal: Denies: HX.MS.OSAR, Back Problems, Cerebrovascular Accident, Depression, Headaches, Loss of Consciousness, Muscle Weakness, Neuromuscular Disorder, Paralysis, Paresthesia, Syncope, Seizures, Other Renal/Endocrine: DENIES: Diabetes Mellitus Type 1, Diabetes Mellitus Type 2, Renal Failure, Dialysis, Thyroid Disease, Weight Loss, Weight Gain, Other Other History: Reports: Now - Surgical History HEENT Surgeries: Reports: Oral Surgery (wisdom teeth removed) Anesthesia Reactions: None Hx Family Anesthesia Reaction: No History of Motion Sickness: No - Social History Smoking Status: Never smoker Second Hand Exposure: No Substance Use Type: does not use Alcohol Intake: never Alcohol Intake Frequency: does not drink Hx Chewing Tobacco Use: No - Pertinent Findings Lab Data: CBC and BMP 01/27/17 17:35 01/27/17 17:35 BMP 01/27/17 17:35 Sodium 138 Potassium 3.6 Chloride 105 Carbon Dioxide 22 BUN 9.0 Creatinine 0.7 Glucose 93 Calcium 9.5 Liver Function 01/27/17 Range/Units 17:35 Total Bilirubin 0.90 (0.20-1.30) MG/DL AST 24 (14-36) U/L ALT 26 (9-52) U/L Alkaline Phosphatase 122 (38-126) U/L Albumin 3.3 L (3.5-5.0) G/DL - Physical Exam Respiratory Exam: lungs clear, bilateral breath sounds equal Cardiovascular Exam: regular rate and rhythm, no murmur - Airway Assessment Mallampati Score: II TMD: 3 Fingerbreadths Neck Extension: good Overall Assessment: may be difficult mask vent, may be difficult intubation - ASA ASA Score: 3 - Discussion Discussion: Discussed risks/options/alternatives of anesthesia and questions answered. Patient consents. Nursing pain assessment noted. Anesthesia Discussion: spouse Attestation Statement: Prior to the delivery of any anesthetic medication, I examined the patient, developed the plan, obtained the patient's consent and discussed the risk and benefits of the procedure with the patient/guardian.
[2017-01-28] MEDS ORDERED: NALOXONE 0.4 MG/ML INJECTION IVP PRN (18:01)
[2017-01-28] MEDS ORDERED: ROPIVACAINE 1% 10MG/ML INJ 200 MG, SUFentanil 50 MCG in NS 100 ML EPI PRN (18:01)
[2017-01-28] MEDS ORDERED: DiphenhydrAMINE 50 MG/ML INJECTION IVP PRN (18:01)
[2017-01-28] MEDS ORDERED: TRANEXAMIC ACID 1,000 MG in NS 100 ML IV ONE (20:42)
[2017-01-28] MEDS ORDERED: CEFAZOLIN 1 G INJECTION IVP ONE (20:42)
[2017-01-28] MEDS ORDERED: ONDANSETRON 4 MG/2 ML INJECTION ONE (21:08)
[2017-01-28] MEDS ORDERED: LIDOCAINE 1.5% W/EPI 1:200,000 30ml SDV PF ONE (21:08)
[2017-01-28] MEDS ORDERED: CALCIUM CARBONATE Chewable 500mg TABLET PO PRN (23:38)
[2017-01-28] MEDS ORDERED: DiphenhydrAMINE 25 MG CAPSULE PO PRN (23:38)
[2017-01-28] MEDS ORDERED: ACETAMINOPHEN 500 MG TABLET PO PRN (23:38)
[2017-01-28] MEDS ORDERED: OXYTOCIN DRIP 30 UNIT/500 ML ML IV SCH (23:38)
[2017-01-28] MEDS ORDERED: MAG-AL + SIM ORAL LIQUID 30ml PO PRN (23:38)
[2017-01-28] MEDS ORDERED: HYDROCORTISONE 2.5% CREAM 30gm RECTALLY PRN (23:38)
[2017-01-28] MEDS ORDERED: HYDROCODONE/APAP 5mg/325mg TABLET PO PRN (23:38)
[2017-01-28] MEDS: IBUPROFEN 800 MG TABLET PO PRN (23:40)
[2017-01-29] MEDS: PRENATAL VITAMIN TABLET PO SCH (09:03)
[2017-01-29] MEDS: IBUPROFEN 800 MG TABLET PO PRN (09:03)
[2017-01-29] MEDS: DOCUSATE CALCIUM 240 MG CAPSULE PO SCH (09:03)
[2017-01-29] MEDS: FERROUS SULFATE 324 MG TABLET PO SCH (09:03)
--- NOTE | 2017-01-29 09:47 | Anesthesia Postoperative Note ---
- Date and Time Date: 01/29/17 Time: 09:46 - Status Patient Participated in Evaluation: Patient Participated in Person Vital Signs: Temperature 98.1 F 01/29/17 06:30 Pulse Rate 97 01/29/17 06:30 Respiratory Rate 16 01/29/17 06:30 Blood Pressure 141/67 H 01/29/17 06:30 Pulse Oximetry 98 01/29/17 06:30 Respiratory Function: Airway Patent Cardiovascular Function: Regular Pulse Mental Status: Alert and Oriented Pain Intensity: 1 Hydration: Taking PO Fluids Complications During Recover: None Apparent - Follow-Up Instructions Instructions: Per Surgeon
--- NOTE | 2017-01-29 10:05 | OB/GYN Progress Note ---
OB-PP Progress Note - General PPD1 Maternal Group B Strep: Negative Maternal blood type: A+ Maternal Rubella Status: Immune - Subjective Date: 01/29/17 Lochia: Minimal Pain: controlled Voiding: voiding Nausea or Vomiting Present: No - Objective Vital Signs: Last Vital Signs Temp 98.1 F 01/29/17 06:30 Pulse 97 01/29/17 06:30 Resp 16 01/29/17 06:30 BP 141/67 H 01/29/17 06:30 Pulse Ox 98 01/29/17 06:30 Urine Output: good General: alert and oriented Abdomen: fundus firm, non-tender Side: bilateral Site: leg, ankle, foot Edema Degree: 2+ Laboratory: Laboratory Results - last 24 hr 01/27/17 01/29/17 17:33 08:13 WBC 18.1 H RBC 3.27 L Hgb 9.8 L D Hct 30.6 L D MCV 93.6 MCH 30.0 MCHC 32.0 RDW Std Deviation 44.6 Plt Count 161 MPV 10.8 Blood Type A Positive Antibody Screen Negative Crossmatch (AHG) See Detail - Assessment Assessment: SP, , PP Hemorrhage - Plan Plan: routine care, iron
--- NOTE | 2017-01-29 10:39 | Operative Note ---
DATE: 01/28/2017 DELIVERY NOTE AND OPERATIVE REPORT Ms. Lechuga progressed well in first stage of labor. She began to push with excellent in the complete and +2 presentation. After pushing for about an hour she delivered the head in the OA presentation. Baby was bulb suctioned on the perineum. With a further push baby was delivered in total. Baby was further bulb suctioned and placed on mother's abdomen. After just over 2 minutes the cord was soft and flat. It was doubly clamped and then cut by the baby's father, You. Baby was a liveborn male with Apgars of 8/8/9, weighing 7 pounds, 8.5 ounces. The placenta, unfortunately, was not forthcoming. After about 45 minutes, I attempted a manual extraction and this was not successful. I could feel that it was stuck at the fundus. Fortunately, her bleeding was not excessive and was under control. After several attempts which the patient tolerated well, I recommended that we move to the operating room for instrumentation removal. PREOPERATIVE DIAGNOSES 1. Retained placenta. 2. Chronic hypertension with superimposed mild preeclampsia. POSTOPERATIVE DIAGNOSES 1. Retained placenta. 2. Chronic hypertension with superimposed mild preeclampsia. PROCEDURE D&C of retained placenta. SURGEON Vani Titus MD ANESTHESIA Continuous epidural - Bobby Wren CRNA EBL 1000 ml total (400 during delivery, 600 ml with surgery). DESCRIPTION OF PROCEDURE Ms. Lechuga was brought to the OR and placed on the OR table in a comfortable supine position. Her analgesia was adequately brought up to surgical levels. She was then placed in the standard lithotomy position. The patient previously had had a Cabrera catheter placed to dependent drain. A freeway speculum was then placed and I suctioned as best I could to remove the gross blood clots. I was able to use ring forceps to remove a good bit of placenta, however could not see cervical edge because of the bleeding. I therefore removed the speculum and again performed a manual extraction. At this time I was able to remove the majority of the placenta. I could still feel that there was a small amount at the fundus. Therefore, after removal of the majority at the fundus, I replaced my freeway speculum. I was able to grasp the anterior lip of cervix. Then, using the large sharp curette, I curetted sharply in all four quadrants and in the fundus until I could feel only basalis membrane. Ring forceps were inserted and a very small amount of tissue further was obtained. We did use the suction curette only to suction out the tissue and did not actually curette with that. We watched carefully for bleeding. This was under excellent control. We removed our instruments and continued to monitor. After we were certain hemostasis was good, we returned Ms. Lechuga to the supine position and transferred her to recovery in stable condition. EAGLE
[2017-01-30] MEDS: PRENATAL VITAMIN TABLET PO SCH (09:50)
[2017-01-30] MEDS: FERROUS SULFATE 324 MG TABLET PO SCH (09:51)
[2017-01-30] MEDS: DOCUSATE CALCIUM 240 MG CAPSULE PO SCH (09:51)
[2017-01-30 14:33] VITALS: O2SAT 99
[2017-01-30 16:21] VITALS: BP 132/63; PULSE 97; TEMP 98
== END 2017-01-30 18:48 | disposition home or self-care (01) | DRG 767 ==
LOC: MC 16:44
PROVIDERS: ADMIT Obstetrics & Gynecology; ATTEND Obstetrics & Gynecology